=== PATIENT | male | born 1995 | race African-American/Black ===

== ENCOUNTER 2018-08-26 08:46 | Emergency (ER) | payer SELFPAY ==
[2018-08-26 09:03] VITALS: BP 183/135
[2018-08-26] MEDS ORDERED: NORMAL SALINE 1000 ML 1,000 ML IV ONE ×2 (09:31→11:57)
[2018-08-26] MEDS ORDERED: KETOROLAC TROMETHAMINE INJ/PF 30 MG/1 ML SDV IV ONE (09:31)
[2018-08-26] MEDS ORDERED: ONDANSETRON HCL INJ/PF 4 MG/2 ML SDV IV ONE (09:31)
--- NOTE | 2018-08-26 09:36 | ER Document Report ---
ED Medical Screen (RME) - General Chief Complaint: Nausea/Vomiting Stated Complaint: SORE THROAT, VOMITING Time Seen by Provider: 08/26/18 09:30 Notes: 23 years old male presents today with 2-day history of sore throat fever chills cough as well as vomited couple of times. Having diffuse abdominal pain with no bowel movement for the few days. No diarrhea. Also having 1 month history of lower back pain. Pharyngotonsillar mucosa was erythematous. TRAVEL OUTSIDE OF THE [place] IN LAST 30 DAYS: No - Related Data Allergies/Adverse Reactions: No Known Allergies Allergy (Unverified 08/26/18 08:51) Physical Exam - Vital signs Vitals: Temp Pulse Resp BP Pulse Ox 100.8 F H 107 H 16 183/135 H 99 08/26/18 09:00 08/26/18 09:00 08/26/18 09:00 08/26/18 09:00 08/26/18 09:00 Course - Vital Signs Vital signs: Temp Pulse Resp BP Pulse Ox 100.8 F H 107 H 16 183/135 H 99 08/26/18 09:00 08/26/18 09:00 08/26/18 09:00 08/26/18 09:00 08/26/18 09:00
--- NOTE | 2018-08-26 10:04 | RADIOLOGY REPORT (SQ) ---
EXAM DESCRIPTION: KUB/ABDOMEN (SINGLE VIEW) COMPLETED DATE/TIME: 08/26/2018 9:48 am REASON FOR STUDY: Abdominal pain COMPARISON: None. NUMBER OF VIEWS: One view. TECHNIQUE: Supine radiographic image of the abdomen acquired. LIMITATIONS: None. FINDINGS: BOWEL GAS PATTERN: Normal bowel gas pattern. No dilated loops. CALCIFICATIONS: No suspicious calcifications. SOFT TISSUES: No gross mass or suggestion of organomegaly. HARDWARE: None in the abdomen. BONES: No acute fracture. No worrisome bone lesions. OTHER: No other significant finding. IMPRESSION: 1. NO RADIOGRAPHIC EVIDENCE FOR ACUTE ABDOMINAL DISEASE. TECHNICAL DOCUMENTATION: JOB ID: [id number] [employer]- All Rights Reserved Reading location - IP/workstation name: [email or web address]
[2018-08-26 10:12] LABS: APPEARANCE,URINE CLOUDY; BILIRUBIN,URINE NEGATIVE (NEGATIVE); COLOR,URINE YELLOW; GLUCOSE, URINE NEGATIVE (NEGATIVE); KETONES,URINE TRACE mg/dL (NEGATIVE); LEUKOCYTE ESTERASE,URINE LARGE (NEGATIVE); NITRITE,URINE NEGATIVE (NEGATIVE); PROTEIN,URINE 30 mg/dL (NEGATIVE); URINE SPECIFIC GRAVITY 1.024; UROBILINOGEN,URINE NEGATIVE mg/dL (<2.0)
[2018-08-26 10:18] LABS: HEMATOCRIT 40.2 % (37.9-51.0); HEMOGLOBIN 13.5 g/dL (13.5-17.0); MEAN CORPUSCULAR HEMOGLOBIN 31.7 pg (27.0-33.4); MEAN CORPUSCULAR HGB CONC 33.6 g/dL (32.0-36.0); MEAN CORPUSCULAR VOLUME 94 fl (80-97); PLATELET COUNT 275 10^3/uL (150-450); RED BLOOD COUNT 4.26 10^6/uL (4.35-5.55); RED CELL DISTRIBUTION WIDTH 12.4 % (11.5-14.0); WHITE BLOOD COUNT 21.1 10^3/uL (4.0-10.5)
--- NOTE | 2018-08-26 10:39 | ER Document Report ---
ED General <JASE IRWIN - Last Filed: 08/26/18 13:23> - General Mode of Arrival: Ambulatory Information source: Patient TRAVEL OUTSIDE OF THE [place] IN LAST 30 DAYS: No <MARILN KAPOOR - Last Filed: 08/26/18 13:59> - General Chief Complaint: Nausea/Vomiting Stated Complaint: SORE THROAT, VOMITING Time Seen by Provider: 08/26/18 09:30 Notes: Patient is a 23 year old male presenting to the emergency department complaining of multiple symptoms including sore throat, nausea and chills. Patient states these symptoms were onset approximately 3 days ago. Patient also complains of back pain onset 1 month ago. Patient denies any coughing. Patient states he had a normal bowel movement yesterday. (MARLIN KAPOOR) - Related Data Allergies/Adverse Reactions: No Known Allergies Allergy (Unverified 08/26/18 08:51) Past Medical History - General Information source: Patient - Social History Smoking Status: Current Every Day Smoker Cigarette use (# per day): No - Marijuana Chew tobacco use (# tins/day): No Frequency of alcohol use: None Drug Abuse: Marijuana Family History: Reviewed & Not Pertinent Patient has suicidal ideation: No Patient has homicidal ideation: No Musculoskeletal Medical History: Reports Other - Right ACL medial meniscus <MARLIN KAPOOR - Last Filed: 08/26/18 13:59> Review of Systems - Review of Systems Constitutional: See HPI, Chills EENT: See HPI, Throat pain Cardiovascular: No symptoms reported Respiratory: No symptoms reported Gastrointestinal: See HPI, Nausea Genitourinary: No symptoms reported Male Genitourinary: No symptoms reported Musculoskeletal: No symptoms reported Skin: No symptoms reported Hematologic/Lymphatic: No symptoms reported Neurological/Psychological: No symptoms reported -: Yes All other systems reviewed and negative <MARLIN KAPOOR - Last Filed: 08/26/18 13:59> Physical Exam <JASE IRWIN - Last Filed: 08/26/18 13:23> <MARLIN KAPOOR - Last Filed: 08/26/18 13:59> - Vital signs Vitals: Temp Pulse Resp BP Pulse Ox 100.8 F H 107 H 16 183/135 H 99 08/26/18 09:00 08/26/18 09:00 08/26/18 09:00 08/26/18 09:00 08/26/18 09:00 - Notes Notes: GENERAL: Alert, interacts well. No acute distress. HEAD: Normocephalic, atraumatic. EYES: Pupils equal, round, and reactive to light. Extraocular movements intact. ENT: Oral mucosa moist, tongue midline. Erythema to the posterior orophranyx, no exudate. TMs erythematous bilaterally. NECK: Full range of motion. Supple. Trachea midline. Upper anterior cervical lymphadenopathy also mildly tender to palpation. LUNGS: Clear to auscultation bilaterally, no wheezes, rales, or rhonchi. No respiratory distress. HEART: Regular rate and rhythm. No murmurs, gallops, or rubs. ABDOMEN: Soft, non-tender. Non-distended. Bowel sounds present in all 4 quadrants. EXTREMITIES: Moves all 4 extremities spontaneously. NEUROLOGICAL: Alert and oriented x3. Normal speech. PSYCH: Normal affect, normal mood. SKIN: Warm, dry, normal turgor. No rashes or lesions noted. (MARLIN KAPOOR) Course - Laboratory Result Diagrams: 08/26/18 10:02 08/26/18 10:02 <JASE IRWIN - Last Filed: 08/26/18 13:23> - Laboratory Result Diagrams: 08/26/18 10:02 08/26/18 10:02 <MARLIN KAPOOR - Last Filed: 08/26/18 13:59> - Vital Signs Vital signs: Temp Pulse Resp BP Pulse Ox 100.8 F H 107 H 16 183/135 H 99 08/26/18 09:00 08/26/18 09:00 08/26/18 09:27 08/26/18 09:00 08/26/18 09:00 - Laboratory Laboratory results interpreted by me: 08/26/18 08/26/18 08/26/18 09:49 09:49 10:02 WBC 21.1 H RBC 4.26 L Seg Neuts % (Manual) 89 H Lymphocytes % (Manual) 7 L Abs Neuts (Manual) 18.8 H Glucose Total Protein Urine Protein 30 H Urine Ketones TRACE H Urine Blood SMALL H Ur Leukocyte Esterase LARGE H N.gonorrhoeae DNA (PCR) DETECTED H 08/26/18 10:02 WBC RBC Seg Neuts % (Manual) Lymphocytes % (Manual) Abs Neuts (Manual) Glucose 123 H Total Protein 9.1 H Urine Protein Urine Ketones Urine Blood Ur Leukocyte Esterase N.gonorrhoeae DNA (PCR) Discharge <JASE IRWIN - Last Filed: 08/26/18 13:23> <MARLIN KAPOOR - Last Filed: 08/26/18 13:59> - Discharge Clinical Impression: Gonorrhea in male, Acute cervical adenitis Pharyngitis Qualifiers: Pharyngitis/tonsillitis etiology: unspecified etiology Qualified Code(s): J02.9 - Acute pharyngitis, unspecified Nausea and vomiting Qualifiers: Vomiting type: unspecified Vomiting Intractability: non-intractable Qualified Code(s): R11.2 - Nausea with vomiting, unspecified Low back pain Qualifiers: Chronicity: chronic Back pain laterality: unspecified Sciatica presence: without sciatica Qualified Code(s): M54.5 - Low back pain Condition: Stable Disposition: HOME, SELF-CARE Additional Instructions: Gonorrhea: You have been diagnosed with gonorrhea. In men, this germ infects the urethra (and sometimes the throat). Men usually have drainage from the penis and pain with urination. In women, the germ infects the vagina and fallopian tubes. There may be discharge and pelvic pain. Some women have no symptoms at all. The infection can do permanent damage to the tubes and ovaries. It should be taken very seriously. Treatment is antibiotics. It's important that you receive all recommended medication. Use condoms to prevent spread of the infection. Because this infection is spread sexually, your sexual partner must be checked before resuming sexual relations. If a culture shows gonorrhea germs, it must be reported to the health department. Call the doctor or return at once if you develop increasing fever, rash, joint swelling, severe pelvic pain, vaginal bleeding (other than your period), or problems with your bladder or bowels. Sore Throat: Sore throats may be caused by viruses, bacteria, or fungi. Most are due to a virus, and must get better on their own. Bacterial sore throats, particularly those due to "strep," need treatment with antibiotics. If an antibiotic is prescribed, be sure to take the medication for a full 10 days. Failure to take the antibiotic can result in complications such as rheumatic fever. Sometimes, an injection of antibiotics is given instead of pills or liquid. This single "shot" is equal in effectiveness to the oral medication. To relieve symptoms, take acetaminophen for pain. Sip clear liquids frequently, or eat popsicles or ice chips. Anesthetic sprays or lozenges may help. Make sure the air in the room is not too dry. Avoid using decongestants or antihistamines. Call the doctor if there is no improvement in two days, or if you have difficulty breathing, increasing throat pain, high fever, rash, or frequent vomiting. Take the medications as prescribed. Drink plenty of fluids today. Get plenty of rest until you are feeling better. Take Tylenol and Ibuprofen for pain and fever. Tell all of your sexual partners about the infection and have them tested at the health department. Follow-up with a local primary care medical provider if not improving. RETURN TO THE EMERGENCY ROOM IF ANY NEW OR WORSENING SYMPTOMS. Prescriptions: Azithromycin [Zithromax 250 mg Tablet] 250 mg PO ASDIR PRN #6 tablet PRN Reason: Ondansetron HCl [Zofran 4 mg Tablet] 1 - 2 tab PO Q4H PRN #10 tablet PRN Reason: For Nausea/Vomiting Scribe Attestation: 08/26/18 11:57 I personally performed the services described in the documentation, reviewed and edited the documentation which was dictated to the scribe in my presence, and it accurately records my words and actions. (JASE IRWIN) Scribe Documentation - Scribe Written by Tonoibsherri:: Amanda Ferreira, 08/26/2018 10:39 acting as scribe for :: Jaciel <MARLIN KAPOOR - Last Filed: 08/26/18 13:59>
[2018-08-26 10:40] LABS: ALANINE AMINOTRANSFERASE 21 U/L (21-72); ALBUMIN 4.9 g/dL (3.5-5.0); ALKALINE PHOSPHATASE 83 U/L (38-126); ANION GAP 12 (5-19); ASPARTATE AMINO TRANSFERASE 25 U/L (17-59); BILIRUBIN,DIRECT 0.3 mg/dL (0.0-0.4); BILIRUBIN,TOTAL 1.1 mg/dL (0.2-1.3); BLOOD UREA NITROGEN 14 mg/dL (7-20); CALCIUM 9.8 mg/dL (8.4-10.2); CARBON DIOXIDE 29 mmol/L (22-30); CHLORIDE 101 mmol/L (98-107); GLUCOSE 123 mg/dL (75-110); POTASSIUM 3.8 mmol/L (3.6-5.0); TOTAL PROTEIN 9.1 g/dL (6.3-8.2)
[2018-08-26 10:47] LABS: URINE AMPHETAMINES SCREEN NEGATIVE; URINE BARBITURATES SCREEN NEGATIVE; URINE BENZODIAZEPINES SCREEN NEGATIVE; URINE COCAINE SCREEN NEGATIVE; URINE MARIJUANA (THC) SCREEN UNCONFIRMED POSITIVE; URINE METHADONE SCREEN NEGATIVE; URINE PHENCYCLIDINE SCREEN NEGATIVE
[2018-08-26 10:58] LABS: ABSOLUTE LYMPHOCYTES# (MANUAL) 1.5 10^3/uL (0.5-4.7); ABSOLUTE MONOCYTES # (MANUAL) 0.8 10^3/uL (0.1-1.4); ABSOLUTE NEUTROPHILS# (MANUAL) 18.8 10^3/uL (1.7-8.2); BASOPHILS % (MANUAL) 0 % (0-2); EOSINOPHILS % (MANUAL) 0 % (0-6); LYMPHOCYTES % (MANUAL) 7 % (13-45); MONOCYTES % (MANUAL) 4 % (3-13); SEGMENTED NEUTROPHILS % (MAN) 89 % (42-78); TOTAL CELLS COUNTED 100
[2018-08-26 10:59] LABS: PLATELET COMMENT ADEQUATE; PLATELET LARGE PRESENT; RBC MORPHOLOGY COMMENT NORMO-CYTIC/CHROMIC; TOXIC GRANULATION SLIGHT; TOXIC VACUOLATION PRESENT
[2018-08-26] MEDS ORDERED: CEFTRIAXONE 1 GM/D5W RTU 1 GM/50 ML RTUPB IV ONE (11:56)
[2018-08-26 12:57] LABS: CHLAM PCR NOT DETECTED (NOT DETECT)
[2018-08-26 12:59] LABS: GON PCR DETECTED (NOT DETECT)
== END 2018-08-26 13:39 | disposition home or self-care (01) ==
LOC: ER 08:46
DX: A54.9 Gonococcal infection, unspecified (principal); R11.2 Nausea with vomiting, unspecified; L04.0 Acute lymphadenitis of face, head and neck; J02.9 Acute pharyngitis, unspecified; M54.5 Low back pain; G89.29 Other chronic pain; R68.83 Chills (without fever); F17.200 Nicotine dependence, unspecified, uncomplicated; F12.10 Cannabis abuse, uncomplicated
CPT/HCPCS: 99284; 96361; 96375; 96365; 36415; 87070; 87086; 87880; 85025; 86308; 80053; 81001; 80307; 87491; 87591; 87486; 74018; J1885; J2405; J7030; J0696